=== PATIENT | female | born 1965 | race Caucasian/White ===

== ENCOUNTER → 2017-07-24 | Outpatient (CLI) | payer OTHER, MEDICAID | END | disposition home or self-care (01) | LOC: GMAH 14:27 | PROVIDERS: ATTEND Family Medicine | DX: E56.9 Vitamin deficiency, unspecified (principal); E55.9 Vitamin D deficiency, unspecified ==

== ENCOUNTER → 2018-06-26 | Outpatient (CLI) | payer OTHER, MEDICAID ==
--- NOTE | 2018-06-27 08:47 | MRI ---
EXAM DESCRIPTION: Lumbar Spine w/o Contrast : Magnetic Resonance Imaging. CLINICAL HISTORY: RADICULOPATHY COMPARISON: None. TECHNIQUE: Multiplanar, multiple standard sequences, non contrast MRI, lumbar spine. FINDINGS: L5-S1: Normal signal in the disc and disc space preserved. No significant bulging. Minimal arthrosis bilateral facets. Canal and foramina are patent. L4-5: Disc desiccation and minimal disc space loss. Tiny anterior and posterior bulges. Bilateral flavum ligament hypertrophy with mild canal narrowing. Mild left foraminal narrowing. L3-4: Normal signal in the disc with disc space preserved. Anterior disc bulge with Modic type II endplate reactive changes superior L4 endplate. Tiny posterior midline bulge. Bilateral flavum ligament hypertrophy with mild canal narrowing. Bilateral foramina are patent. Bilateral facets are unremarkable. L2-3: Disc desiccation minimal anterior bulging with Modic type II endplate reactive changes. Bilateral flavum ligament hypertrophy mild with no canal stenosis. Bilateral foramina are patent. L1-2: Normal signal in the disc with disc space preserved. Posterior elements are unremarkable. Canal and foramina are patent. Conus terminates at this level. T12-L1: Normal signal in the disc with disc space preserved. Posterior elements unremarkable. Canal and foramina are patent. L2-L4 levoscoliosis. Paravertebral soft tissues are unremarkable.. Normal marrow signal in the remaining vertebral bodies and the posterior elements. Vertebral bodies are not compressed at any level. IMPRESSION: 1. Desiccated discs at some levels with minimal bulging. Canal narrowing at some levels due to flavum ligament hypertrophy. Anterior spondylosis at some levels. No canal or foraminal stenosis at any level. Minimal levoscoliosis. Electronically signed by: Edi Jenkins MD 06/27/2018 8:46 AM CDT
== END ==
LOC: MRI 14:00
PROVIDERS: ATTEND Family Medicine
DX: M54.16 Radiculopathy, lumbar region (principal)

== ENCOUNTER 2018-09-08 19:50 | Emergency (ER) | payer OTHER, MEDICAID ==
[2018-09-08] MEDS ORDERED: FOLIC ACID INJ 5 MG/ML VIAL IV ONE (20:01)
[2018-09-08] MEDS ORDERED: SODIUM CHLORIDE 0.9% 50ML 50 ML ONE (20:25)
[2018-09-08] MEDS ORDERED: HYDROcodone 10MG/APAP 325MG 1 EA TAB PO ONE (21:16)
--- NOTE | 2018-09-08 21:19 | ED.PDOC ---
History of Present Illness - General Chief Complaint: Neuro Symptoms/Deficits Stated Complaint: seizure Time Seen by Provider: 09/08/18 19:53 Source: patient, family Exam Limitations: no limitations - History of Present Illness Initial Comments: The patient is a 53-year-old female presenting to the emergency room after having had a tonic-clonic seizure at home lasting approximately 3 minutes that was witnessed by family. She did have some urinary incontinence. She has had one previous seizure in the past. That was approximately 3 years ago and a head CT was done at that time. She has a history of chronic pain and anxiety and does take daily benzodiazepines multiple times a day. She actually ran out of her Xanax 2 days ago as well as her hydrocodone 2 days ago. They have been unable to get them filled. The patient was noting increasing muscle spasms throughout the day until she had a seizure. By time EMS arrived the patient was postictal and in route she started being able to converse again. Mentation has progressively improved since her arrival here. No evidence of any trauma. No focal neurological deficits. Timing/Duration: other Severity: moderate Improving Factors: nothing Worsening Factors: nothing Associated Symptoms: malaise, seizure Allergies/Adverse Reactions: Allergies NO KNOWN ALLERGY Allergy (Verified 02/01/13 15:38) Home Medications: Ambulatory Orders ALPRAZolam [Xanax] 1 mg PO BID 09/25/14 Pilocarpine HCl 5 mg PO DAILY 09/25/14 Pregabalin [Lyrica] 75 mg PO BID 09/25/14 Methotrexate Sodium [Methotrexate] 15 mg PO WKLY 05/19/15 Citalopram Hydrobromide [Celexa] 40 mg PO DAILY 05/22/15 HYDROcodone 10MG/APAP 325MG [[place] 10/325] 1 mg PO PRN 05/22/15 Clonazepam 1 mg PO BID #10 tab 09/08/18 Review of Systems - Review of Systems Review of Systems: 09/08/18 21:19 for new symptoms only Constitutional: States: malaise EENTM: States: no symptoms reported Respiratory: States: no symptoms reported Cardiology: States: no symptoms reported Gastrointestinal/Abdominal: States: nausea Genitourinary: States: no symptoms reported Musculoskeletal: States: back pain Skin: States: no symptoms reported Neurological: States: headache - which she reports is due to running out of her hydrocodone Endocrine: States: no symptoms reported All other Systems: No Change from Baseline Past Medical History (General) - Patient Medical History Hx Seizures: No Hx Stroke: No Hx Dementia: No Hx Asthma: No Hx of COPD: No Hx Cardiac Disorders: No Hx Congestive Heart Failure: No Hx Pacemaker: No Hx Hypertension: No Hx Thyroid Disease: No Hx Diabetes: No Hx Gastroesophageal Reflux: No Hx Renal Disease: No Hx Cancer: Yes - cervical Hx of HIV: No Hx Hepatitis C: No Hx MRSA: No - Vaccination History Hx Tetanus, Diphtheria Vaccination: No Hx Influenza Vaccination: No Hx Pneumococcal Vaccination: No Immunizations Up to Date: No - Social History Hx Tobacco Use: No Hx Alcohol Use: - unknown Hx Substance Use: Yes Hx Substance Use Treatment: No - unknown Hx Depression: Yes Hx Physical Abuse: No Hx Emotional Abuse: No Hx Suspected Abuse: No - Female History Patient : No Family Medical History - Family History Mother Family History: No Known Living Status: Physical Exam - Physical Exam General Appearance: Alert - still mildly drowsy though, No apparent distress Eye Exam: bilateral normal Ears, Nose, Throat: hearing grossly normal, normal ENT inspection Neck: supple Respiratory: lungs clear, normal breath sounds, no respiratory distress, no accessory muscle use Cardiovascular/Chest: normal peripheral pulses, no edema, tachycardia - borderline sinus tachycardia but does improve over time Peripheral Pulses: radial,right: 2+, radial,left: 2+, dorsalis pedis,right: 2+, dorsalis pedis,left: 2+ Gastrointestinal/Abdominal: non tender, soft Rectal Exam: deferred Back Exam: no CVA tenderness, no vertebral tenderness Extremity: normal range of motion, non-tender, normal inspection, no pedal edema , normal capillary refill Neurologic: planning assistant II-XII nml as tested, alert, oriented x 3 Skin Exam: normal color Comments: Vital Signs - 24 hr 09/08/18 09/08/18 09/08/18 20:02 20:07 20:43 Temperature 99.5 F Pulse Rate [ 118 H 118 H 109 H Right] Respiratory 18 16 Rate Blood Pressure 149/67 140/83 [Left Arm] O2 Sat by Pulse 96 96 Oximetry 09/08/18 20:45 Temperature Pulse Rate [ 107 H Right] Respiratory 18 Rate Blood Pressure 140/83 [Left Arm] O2 Sat by Pulse 98 Oximetry Progress - Progress Progress: 09/08/18 21:21 The patient is a 53-year-old female presents to emergency room after a generalized seizure at home. It is most likely that this was induced by poor recent sleep patterns and running out of her benzodiazepines. The patient will be written for clonazepam 1 mg by mouth twice a day for 5 days only. She needs to contact her primary care doctor to get her medications sorted out. She was given a liter of IV fluids additionally and the dose of her home pain medication for her headache. She needs to follow-up with her primary care doctor later this week. ER warnings were given for any significant worsening. - Results/Orders Results/Orders: Laboratory Tests 09/08/18 09/08/18 09/08/18 20:12 20:12 20:12 WBC 8.5 RBC 5.18 Hgb 16.8 H Hct 49.8 H MCV 96.1 MCH 32.4 H MCHC 33.8 RDW 12.2 Plt Count 166 MPV 8.0 Absolute Neuts (auto) 6.00 Absolute Lymphs (auto) 1.90 Absolute Monos (auto) 0.40 Absolute Eos (auto) 0.00 Absolute Basos (auto) 0.10 Neutrophils % 70.9 Lymphocytes % 22.8 Monocytes % 5.1 Eosinophils % 0.3 L Basophils % 0.9 Sodium 138 Potassium 3.9 Chloride 105 Carbon Dioxide 20 L Anion Gap 16.9 BUN 10 Creatinine 0.77 BUN/Creatinine Ratio 13.0 Random Glucose 167 H Serum Osmolality 278.5 Calcium 9.5 Magnesium 1.8 Total Bilirubin 0.6 AST 24 ALT 34 Alkaline Phosphatase 60 Serum Total Protein 8.2 Albumin 5.0 Globulin 3.2 Albumin/Globulin Ratio 1.6 Departure - Departure Clinical Impression: Generalized seizure Disposition: Discharge to Home or Self Care Condition: Fair Departure Forms: ED Discharge - Pt. Copy, Patient Portal Self Enrollment Instructions: Seizures, Adult (DC) Diet: regular diet Activity: increase activity as tolerated - no driving swimming or climbing for the next 3 weeks at least Referrals: Koby Kaufman MD [Primary Care Provider] - 1-5 Days Prescriptions: Clonazepam 1 mg PO BID #10 tab Home Medications: Ambulatory Orders ALPRAZolam [Xanax] 1 mg PO BID 09/25/14 Pilocarpine HCl 5 mg PO DAILY 09/25/14 Pregabalin [Lyrica] 75 mg PO BID 09/25/14 Methotrexate Sodium [Methotrexate] 15 mg PO WKLY 05/19/15 Citalopram Hydrobromide [Celexa] 40 mg PO DAILY 05/22/15 HYDROcodone 10MG/APAP 325MG [[place] 10/325] 1 mg PO PRN 05/22/15 Clonazepam 1 mg PO BID #10 tab 09/08/18 Additional Instructions: The patient is a 53-year-old female presents to emergency room after a generalized seizure at home. It is most likely that this was induced by poor recent sleep patterns and running out of her benzodiazepines. The patient will be written for clonazepam 1 mg by mouth twice a day for 5 days only. She needs to contact her primary care doctor to get her medications sorted out. She was given a liter of IV fluids additionally and the dose of her home pain medication for her headache. She needs to follow-up with her primary care doctor later this week. ER warnings were given for any significant worsening.
[2018-09-08] MEDS ORDERED: SODIUM CHLORIDE 0.9% 1000ML 1,000 ML IVS ONE (21:21)
[2018-09-08 22:20] VITALS: BP 135/80; TEMP 98.1; O2SAT 97
== END 2018-09-08 22:20 | disposition home or self-care (01) ==
LOC: ER 19:50
DX: R56.9 Unspecified convulsions (principal); F32.9 Major depressive disorder, single episode, unspecified; F41.9 Anxiety disorder, unspecified; G89.29 Other chronic pain; Z79.899 Other long term (current) drug therapy; Z85.41 Personal history of malignant neoplasm of cervix uteri
CPT/HCPCS: 36415; 80053; 83735; 85025; A4216

== ENCOUNTER → 2019-05-04 | Outpatient (CLI) | payer OTHER, MEDICAID ==
--- NOTE | 2019-05-05 13:16 | US ---
EXAM DESCRIPTION: Abdomen,Complete: Ultrasound. CLINICAL HISTORY: UPPER RIGHT QUADRANT PAIN COMPARISON: None Available. TECHNIQUE: Transabdominal scannin-dimensional and Doppler modes. FINDINGS: Gallbladder: Appears mildly contracted. Wall thickness 2.4 cm. No intraluminal stones or sludge. No surrounding fluid. Nontender with transducer pressure.. Common bile duct: 4.7 mm is normal caliber. Liver: Diffuse increased echogenicity. Long axis of the right lobe 13.9 cm. Normal caliber of the ducts. Normal hepatopedal flow in the portal vein. Smooth capsule with no ascites. Pancreas: Included segments with normal echogenicity. Pancreatic duct not seen.. Abdominal aorta: Normal caliber from the proximal segment to the distal bifurcation. IVC: visualized; normal caliber. Spleen normal echogenicity; long axis measurement is 9.7 cm. Right kidney: 11.0 cm long axis. Normal cortical thickness and echogenicity. No hydronephrosis, no echogenic stones, and no perirenal fluid. Left kidney: 10.2 cm Long axis. Heterogeneous cortical echoes with normal thickness. No hydronephrosis, no echogenic stones, and no perirenal fluid. IMPRESSION: Gallbladder is contracted but no wall thickening fluid or tenderness. No stones or sludge. Fatty liver but normal size. Normal ducts in vascularity. Smooth capsule with no ascites. Normal aorta, IVC, and pancreas are negative. Heterogeneous left renal cortical echoes but normal thickness. Right kidney is unremarkable. Electronically signed by: Edi Jenkins MD 05/05/2019 1:14 PM CDT
== END ==
LOC: US 13:30
PROVIDERS: ATTEND Family Medicine
DX: K87 Disorders of gallbladder, biliary tract and pancreas in diseases classified elsewhere (principal); K76.0 Fatty (change of) liver, not elsewhere classified

== ENCOUNTER → 2019-06-21 | Outpatient (CLI) | payer OTHER, MEDICAID ==
--- NOTE | 2019-06-21 17:11 | NM ---
EXAM DESCRIPTION: Hepatobiliary w/CCK: Nuclear Medicine. CLINICAL HISTORY: R93.2 COMPARISON: Ultrasound abdomen 05/04/2019 TECHNIQUE: Patient was given 8.1 mCi of technetium 99 M mebrofenin (Choletec) radiopharmaceutical IV. Anterior gamma camera images were obtained of the right upper quadrant at 5 minute intervals for one hour . The patient was then given 1.2 mcg CCK. .Gallbladder ejection fraction was evaluated by measuring diminishing radioactivity in the gallbladder, over 30 min interval. FINDINGS: After radiopharmaceutical was given, there was timely visualization of the entire liver, intrahepatic ducts, gallbladder and small intestine. No focal lesions in the liver. After CCK administration began, the patient had nausea and right upper quadrant pain reproduced. Immediate loss of activity in the liver over the first 10 minutes of 88%. Minimal reaccumulation of the radiopharmaceutical in the gallbladder over the next 20 minutes. Total amount of activity lost in the gallbladder over 30 minutes interval is 77%. IMPRESSION: 1. No intrahepatic or extra hepatic biliary obstruction. Proximal bowel does not appear distended or obstructed. 2. Normal gallbladder ejection fraction 10 minutes and 30 minutes after CCK administration. There was reproduction of symptoms when CCK administration began. Electronically signed by: Edi Jenkins MD 06/21/2019 5:09 PM CDT
== END ==
LOC: NM 09:00
PROVIDERS: ATTEND Family Medicine
DX: R93.2 Abnormal findings on diagnostic imaging of liver and biliary tract (principal)
CPT/HCPCS: 78227; A9537